=== PATIENT | male | born 2000 | race Caucasian/White ===

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

== ENCOUNTER 2021-07-14 16:07 | Emergency (ER) | payer MEDICAID ==
[~2021-07-14] VITALS: Ht 170 cm; Wt 80.9 kg
[~2021-07-14 16:07] MED LIST changes: +CYCL10TA25 PO; -CYCL10TA9 PO; -OXYC-471 PO; +OXYC1TAB11 PO
[2021-07-14] MEDS ORDERED: TETANUS,DIPTH,PERTUSS P/F (BOOSTRIX) 0.5 ML VIAL IM ONE (16:15)
[2021-07-14] MEDS ORDERED: CEPH500T PO (16:44)
[2021-07-14 16:52] VITALS: BP 155/100
--- NOTE | 2021-07-14 18:29 | ED Upper Extremity ---
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 CUT R 4TH FINGER ON . AVULSED AREA AT TIP. Source: patient Exam Limitations: no limitations History of Present Illness Date Seen by Provider: Jul 14, 2021 Time Seen by Provider: 16:38 Initial Comments To ER with a laceration to the pad of the right ring finger that occurred about 1 hour prior to arrival. Not sure of last tetanus vaccine date. This occurred due to some sharp chicken wire as he was building a chicken coop. Onset: just prior to arrival Severity: mild Pain/Injury Location: right 4th finger Method of Injury: direct blow Modifying Factors: Worse With Movement Allergies and Home Medications Allergies Coded Allergies: No Known Drug Allergies (Unverified , 06/09/09) Patient Home Medication List Home Medication List Reviewed: Yes Bacitracin (Bacitracin) 28.4 Gm Oint...g., 1 GM TP BID Prescribed by: BOUCHRA DICK on 11/06/16 0043 Cyclobenzaprine HCl (Cyclobenzaprine HCl) 10 Mg Tablet, 5 MG PO HS PRN for SPASMS Prescribed by: TROY FISHER on 01/02/17 0145 Oxycodone HCl/Acetaminophen (Oxycodone-Acetaminophen 5-325) 1 Each Tablet, 1 EACH PO Q6H PRN for PAIN Prescribed by: BOUCHRA DICK on 11/06/16 0040 Review of Systems Constitutional: see HPI EENTM: see HPI Respiratory: no symptoms reported Cardiovascular: no symptoms reported Genitourinary: no symptoms reported Musculoskeletal: no symptoms reported Skin: see HPI Psychiatric/Neurological: No Symptoms Reported Past Gfgzyia-Bmgbvw-Txohwo Hx Patient Social History Tobacco Use?: No Substance use?: No Alcohol Use?: Yes Alcohol Frequency: Rarely Immunizations Up To Date Tetanus Booster (TDap): Unknown PED Vaccines UTD: Yes Seasonal Allergies Seasonal Allergies: No Past Medical History Surgeries: No Respiratory: No Cardiac: No Neurological: No Genitourinary: No Gastrointestinal: No Musculoskeletal: No Endocrine: No HEENT: No Cancer: No Psychosocial: No Integumentary: No Blood Disorders: No Family Medical History No Pertinent Family Hx Physical Exam Vital Signs Vital Signs - First Documented 07/14/21 16:12 Temp 36.8 Pulse 120 Resp 18 B/P (MAP) 155/100 (118) Pulse Ox 98 O2 Delivery Room Air Capillary Refill : Less Than 3 Seconds Height, Weight, BMI Height: 5'4.00" Weight: 120lbs. oz. 54.955896eb; 27.00 BMI Method:Stated General Appearance: WD/WN, no apparent distress HEENT: PERRL/EOMI, normal ENT inspection Neck: non-tender, full range of motion Respiratory: no respiratory distress, no accessory muscle use Elbow/Forearm: normal inspection, non-tender Wrist: Yes normal inspection, Yes non-tender Hand: Right, laceration (1 cm flap type laceration over the pad of the right ring finger. Minimal active bleeding. Depth is to the subcutaneous tissue.) Neurologic/Psychiatric: alert, normal mood/affect, oriented x 3 Skin: normal color, warm/dry Progress/Results/Core Measures Results/Orders My Orders Orders - AUGUSTINE URBINA APRN Dipht,Pertuss(Acell),Tet Adult (Boostrix (07/14/21 16:15) Medications Given in ED Current Medications Medications Dose Ordered Sig/Fer Route Start Time Stop Time Status Last Admin Dose Admin Diphtheria/ Tetanus/Acell Pertussis 0.5 ml ONCE ONCE IM 07/14/21 16:15 07/14/21 16:16 DC 07/14/21 16:33 0.5 ML Vital Signs/I&O 07/14/21 16:12 Temp 36.8 Pulse 120 Resp 18 B/P (MAP) 155/100 (118) Pulse Ox 98 O2 Delivery Room Air Blood Pressure Mean: 118 Departure Communication (Admissions) Procedure note: Laceration 1 cm in length depth to subcutaneous tissue anesthetized with 1% lidocaine buffered with sodium bicarb. Total volume 1.5 mL. Wound was then scrubbed with chlorhexidine/saline solution then irrigated with the same. This was then closed with 4 simple interrupted sutures size 5-0 Ethilon. Antibiotic ointment then tube gauze applied. Impression Primary Impression: Finger laceration Disposition: HOME, SELF-CARE Condition: Stable Departure-Patient Inst. Decision time for Depature: 16:41 Referrals: AILIN BELLO DO (PCP/Family) Primary Care Physician Patient Instructions: Laceration Repair With Stitches ED Add. Discharge Instructions: 1. Remove the dressing by simply pulling on it on . Take the anti biotic as directed. Tylenol and ibuprofen for pain. Put either a condom or a glove over this hand/finger while showering to keep it dry. After you remove the dressing on then you can let water run over it. However, do not soak it in water such as a hot tub bathtub or dish sink until the stitches are removed. Stitches should be removed on the , 10 days from now. You can do that at home if you are comfortable, if you are not then please return to the emergency room at no charge to have the stitches removed. Scripts Cephalexin (Cephalexin) 500 Mg Tablet 500 MG PO TID, #9 TAB Prov: AUGUSTINE URBINA APRN 07/14/21 AUGUSTINE URBINA APRN Jul 14, 2021 16:43
== END 2021-07-14 16:52 | disposition home or self-care (01) ==
LOC: EDUNIT# 16:07 → ER 16:08
DX: S61.214A Laceration without foreign body of right ring finger without damage to nail, initial encounter (principal); Z23 Encounter for immunization; W26.8XXA Contact with other sharp object(s), not elsewhere classified, initial encounter
CPT/HCPCS: 12001; 90715